=== PATIENT | female | born 2005 | race Caucasian/White ===

== ENCOUNTER 2024-11-05 18:29 | Emergency (ER) | payer OTHER, SELFPAY ==
[2024-11-05 18:33] VITALS: BP 121/76; PULSE 86; RESP 16; TEMP 36.4; O2SAT 97; BMI 32.5
[2024-11-05 19:08] LABS: Ur HCG Qualitative* Negative (Negative)
--- NOTE | 2024-11-05 19:16 | ED.FEMALEGU ---
HPI - Female Genitourinary General Chief complaint: Urogenital Problems, Female Stated complaint: Cramps, had vaginal bleeding Time Seen by Provider: 11/05/24 18:33 Source: patient, RN notes reviewed and other Mode of arrival: ambulatory Limitations: no limitations History of Present Illness HPI Narrative: Patient is a delightful 19-year-old female who was the student at [employer], presents here after she had an IUD inserted on September 30, since then she had bleeding on and off intermittently till approximately a week to 10 days ago. Since then she has had no bleeding. She has cramping however her lower abdomen. She is sexually active, denies any fevers chills or sweats, there is no other abdominal pain or vaginal discharge associated with this, she does not have a history of any STDs. She comes in here and says that she does not want to check from me as I am not a female doctor. She was concerned about her IUD. Related Data Home Medications ?Medication ?Instructions ?Recorded ?Confirmed metformin 500 mg tablet 500 mg PO QDAY 08/23/24 11/05/24 spironolactone 25 mg tablet 25 mg PO QDAY 08/23/24 11/05/24 topiramate 25 mg tablet 25 mg PO QDAY 08/23/24 11/05/24 fluoxetine 10 mg capsule 30 mg PO DAILY 11/05/24 11/05/24 Allergies Allergy/AdvReac Type Severity Reaction Status Date / Time shellfish derived Allergy Unknown Verified 11/05/24 18:37 Review of Systems Status of ROS: Reports: 10 or more systems reviewed and unremarkable except as noted in History and below Exam Narrative: Exam Narrative: On examination she is in the room with her boyfriend, she is in no apparent distress she is nontoxic with normal vital signs her abdomen is soft, there is no guarding no organomegaly bowel sounds are normal, no tenderness at all on palpation. Const: Vital Signs, click to edit/add: Vital Signs - 24 hr 11/05/24 18:33 Temperature 97.5 F L Pulse Rate [Pulse Oximeter] 86 Respiratory Rate 16 Blood Pressure [Ri ght Upper Arm] 121/76 Pulse Oximetry 97 Oxygen Delivery Me thod Room Air Documenting provider has reviewed patient's vital signs: yes Course Vital Signs Vital signs: Initial Vital Signs Temperature 97.5 F L 11/05/24 18:33 Temperature Source Temporal Artery Scan 11/05/24 18:33 Pulse Rate 86 11/05/24 18:33 Respiratory Rate 16 11/05/24 18:33 Blood Pressure 121/76 11/05/24 18:33 Blood Pressure Mean 91 11/05/24 18:33 Blood Pressure Position Sitting 11/05/24 18:33 Pulse Oximetry 97 11/05/24 18:33 Oxygen Delivery Method Room Air 11/05/24 18:33 Vital Signs Temperature 97.5 F L 11/05/24 18:33 Pulse Rate 86 11/05/24 18:33 Respiratory Rate 16 11/05/24 18:33 Blood Pressure 121/76 11/05/24 18:33 Pulse Oximetry 97 11/05/24 18:33 Oxygen Delivery Method Room Air 11/05/24 18:33 Temperature 97.5 F L 11/05/24 18:33 Pulse Rate 86 11/05/24 18:33 Respiratory Rate 16 11/05/24 18:33 Blood Pressure 121/76 11/05/24 18:33 Pulse Oximetry 97 11/05/24 18:33 Oxygen Delivery Method Room Air 11/05/24 18:33 MDM - Female Genitourinary MDM Narrative Medical decision making narrative: I discussed with her that I am a male physician in we do not have a female physician here, she was comfortable in not getting checked as she does not feel it was urgent she would however consider seeing OBGYN next door, we did give her a card for Dr. Linn and she can schedule appointment there week and half, we did rule out , I think it is reasonable to let her go over there, and get a pelvic examination. If she has increasing fever, abdominal pain or bleeding, then I think it becomes more ID ER visit, and she was in agreement with me. Lab Data Attestation: I reviewed the patient's lab results. Labs: Lab Results 11/05/24 Range/Units 18:54 Urine HCG, Qual Negative (Negative) Discharge Plan Discharge Clinical Impression: Uterine cramping Patient Disposition: Home w/ Parent or Adult Condition: Stable Additional Instructions: Home rest use of ibuprofen for discomfort, follow-up with OBGYN for IUD check within the next few weeks. Return as needed if increasing pain bleeding, or other issues, you are not per test Activity Level: Light activity Prescriptions: No Action metformin 500 mg tablet 500 mg PO QDAY topiramate 25 mg tablet 25 mg PO QDAY spironolactone 25 mg tablet 25 mg PO QDAY fluoxetine 10 mg capsule 30 mg PO DAILY Follow Up/Referrals: Provider,Not a Local [Primary Care Provider, Family Practice] Stand Alone Forms: [employer] Info Instructions
== END 2024-11-05 19:18 | disposition home or self-care (01) ==
PROVIDERS: Emergency Provider Family Medicine
DX: N94.6 Dysmenorrhea, unspecified (principal)
CPT/HCPCS: 81025; 99283